=== PATIENT | male | born 1955 | race African-American/Black ===

== ENCOUNTER 2016-08-12 14:24 | Emergency (ER) | payer OTHER ==
[2016-08-12 14:37] VITALS: TEMP 97.9; BMI 22.8
--- NOTE | 2016-08-12 15:08 | EDPRACDOC ---
- General Information Chief Complaint: Wound Stated Complaint: LEFT ARM ABSCESS FROM CHEMO? Time Seen by Provider: 08/12/16 14:58 Information Source: Patient Mode of Arrival:: Car Home Medications: Home Medications Acetaminophen [Acetaminophen ER] 650 mg PO QID PRN 08/12/16 Aspirin (Enteric Coated) [Ecotrin] 81 mg PO DAILY 08/12/16 Azithromycin 250 mg PO .SEE COMMENTS 08/12/16 Dexamethasone 8 mg PO . DIR FOR CHEMO 08/12/16 Famotidine [Pepcid] 40 mg PO DAILY 08/12/16 Hydrochlorothiazide [Hydrodiuril] 12.5 mg PO DAILY 08/12/16 Ibuprofen 800 mg PO TID PRN #30 tablet 08/12/16 Lisinopril [Zestril] 2.5 mg PO DAILY 08/12/16 Mineral Oil/Petrolatum,White [Hydrocerin Cream] 1 applic TOP DIR 08/12/16 Prednisone [Deltasone, Orasone] 5 mg PO BID 08/12/16 Tamsulosin HCl [Flomax] 0.4 mg PO DAILY 08/12/16 Allergies/Adverse Reactions: Allergies Allergy/AdvReac Type Severity Reaction Status Date / Time Penicillins Allergy Hives* Verified 08/12/16 14:32 - History of Present Illness Onset: last night HPI: Pt states had chemo for prostate cancer in L arm on 07/31/16. Pt noticed L arm redness, swelling and pain to veins in L arm and forearm x 2 days. Denies fever , red streaking, numbness, cp, sob. Location: Reports: Extremity (L arm) Last Tetanus: Yes Relevent History Of: Reports: None Prior Abscess: Reports: None Pain: Reports: Mild Quality: Reports: Painful, Red Associated Signs & Symptoms: Reports: None ED Past Medical History - History Reviewed Yes Nurses notes reviewed and agree except as marked - Patient Medical History Psychological History: Denies: Depression Systemic History: Reports: Cancer (prostate) - Social Medical History Smoking Status: Former smoker ETOH: None Substance Abuse: None EDM Review of Systems - Review of Systems Constitutional: No Symptoms Reported. negative: Fever, Chills, Weakness, Fatigue, Loss of Appetite Respiratory: No Symptoms Reported. negative: Cough, Brassy Cough, Barky Cough, Shortness of Breath, Wheezing, Hemoptysis Cardiovascular: No Symptoms Reported. negative: Chest Pain, Palpitations, Syncope, Edema, Orthopnea, PND, Skin Mottling, Cyanosis Neurological: No Symptoms Reported. negative: Headache, Dizziness, Seizure, Numbness, Weakness, Speech Difficulty, Gait Difficulty Musculoskeletal: Arm, Forearm Integumentary: Wound Allergic/Immunologic: No Symptoms Reported. negative: Hives, Itching Hematologic: No Symptoms Reported. negative: Lymphadenopathy, Easy Bruising, Easy Bleeding Psychiatric: No Symptoms Reported. negative: Anxiety, Depression, Hallucinations, Insomnia, Suicidal - Physical Exam Constitutional: Alert Oriented to: Time, Person, Place Last recorded Vital Signs: Last Vital Signs Temp 97.9 F 08/12/16 14:33 Pulse 69 08/12/16 14:33 Resp 18 08/12/16 14:33 BP 149/85 08/12/16 14:33 Pulse Ox 99 08/12/16 14:33 Oxygen Pulse Oxygen Saturation 99 O2 Device Room Air Oxygen Flow Rate Fraction of Inspired Oxygen ( FIO2) - HEENT Head: Normal ( normocephalic) Eye Exam: Normal (PERRL, EOMI, Sclera white) Neck: Normal (FROM, trachea at midline) - Respiratory/Cardiovascular Respiratory: Normal - CTA (BBS clear to auscultation without adventitious sounds ) Cardiovascular: Normal (RRR without murmur, gallop or rub) - Musculoskeletal Extremities: Other (L upper arm medial with erythema, swelling and tenderness to veins, L forearm swelling of veins without erythema.) - Integumentary Skin: Normal, Warm, Dry Lymphatics: Normal (no adenopathy) - Neurologic Memory Impaired: Normal Motor Function: Normal (Normal tone, Pulses 2+ No cyanosis or edema, FROM) Mood Description: Normal Perception: Normal ED Abscess/Mass Exam - Integumentary Skin: Normal, Warm, Dry Mass: Red, Tender, Warm Lymphatics: Normal - Differential Diagnosis Cellulitis, Other (superficial thrombophelibitis, DVT) - Results 08/12/16 15:21 08/12/16 15:21 Lab Results: 08/12/16 18:16 Laboratory Results - last 24 hr 08/12/16 08/12/16 08/12/16 15:21 15:21 15:21 WBC 3.5 L RBC 3.71 L Hgb 10.5 L Hct 32.5 L MCV 88 MCH 28.4 MCHC 32.4 L RDW 14.9 H Plt Count 184 MPV 8.3 Neut % (Auto) Cancelled Lymph % (Auto) Cancelled [place] % (Auto) Cancelled Eos % (Auto) Cancelled Baso % (Auto) Cancelled Absolute Neuts (auto) Cancelled Absolute Lymphs (auto) Cancelled Seg Neuts % (Manual) 7 L Band Neutrophils % 3 Lymphocytes % (Manual) 69 H Monocytes % (Manual) 20 H Eosinophils % (Manual) 1 Absolute Neutrophils 0.35 L Absolute Lymphocytes 2.42 Atypical Lymphocytes Mod amt Platelet Estimate Norm RBC Morphology 1+ polychrom PT 10.0 INR 1.0 APTT 21.1 L Sodium 139 Potassium 4.3 Chloride 102 Carbon Dioxide 25 Anion Gap 16 BUN 13 Creatinine 1.00 Estimated GFR (MDRD) > 60 Glucose 90 Calculated Osmolality 268 L Calcium 10.0 Total Bilirubin 0.6 AST 43 ALT 49 Alkaline Phosphatase 53 Total Protein 8.2 Albumin 4.2 - Diagnostic Imaging Other Image interpreted by: Radiologist Arm: IMPRESSION: Negative for deep venous thrombosis in the left upper extremity. Decision Time to Discharge: 18:16 - Departure Disposition: Home Condition: Good Final Diagnosis: Superficial thrombophlebitis of upper extremity Qualifiers: Laterality: left Qualified Code(s): I80.8 - Phlebitis and thrombophlebitis of other sites Instructions: Superficial Thrombophlebitis (ED) Education/Counseling Given To: Patient Education/Counseling Given Regarding: Diagnosis, Treatment, Follow Up Referrals: None,No Provider [Primary Care Provider] - One Week Eduin Short II, MD [Staff Physician] - One Week Prescriptions: Ibuprofen 800 mg PO TID PRN #30 tablet PRN Reason: Pain Additional Instructions: Apply warm compresses to area 4-5 times daily. Follow up with Oncologist prior to next round of chemo. Return for worse or different symptoms.
[2016-08-12 15:32] LABS: MPV 8.3 fL (7.4-10.4)
[2016-08-12 15:39] LABS: BLOOD UREA NITROGEN 13 MG/DL (9-20); CALCULATED OSMOLALITY 268 MOs/Kg (270-290); CHLORIDE 102 mEq/L (98-107); GLUCOSE 90 MG/DL (70-99); SODIUM LEVEL 139 mEq/L (137-146); TOTAL PROTEIN 8.2 G/DL (6.3-8.2)
[2016-08-12 15:45] LABS: PARTIAL THROMB. TIME 21.1 SEC (22-35)
[2016-08-12 15:54] LABS: SEG NEUTROPHIL 7 % (45-76)
--- NOTE | 2016-08-12 17:33 | DIRPT ---
CLINICAL DATA: Pain and swelling in the left upper extremity for 3 days. EXAM: LEFT UPPER EXTREMITY VENOUS DOPPLER ULTRASOUND TECHNIQUE: Bui-scale sonography with graded compression, as well as color Doppler and duplex ultrasound were performed to evaluate the upper extremity deep venous system from the level of the subclavian vein and including the jugular, axillary, basilic and upper cephalic vein. Spectral Doppler was utilized to evaluate flow at rest and with distal augmentation maneuvers. COMPARISON: None. FINDINGS: Thrombus within deep veins: None visualized. Left internal jugular vein is compressible with color Doppler flow and normal phasicity. Left subclavian vein is patent with color Doppler flow and normal phasicity. Normal compressibility and color Doppler flow in the left axillary vein. Left brachial veins are compressible without thrombus. Left basilic vein is compressible with color Doppler flow and augmentation. The left radial and ulnar veins are compressible without thrombus. Left cephalic vein not visualized. Other findings: Right subclavian vein is patent without thrombus. IMPRESSION: Negative for deep venous thrombosis in the left upper extremity. Electronically Signed By: Malcolm Kaur M.D. On: 08/12/2016 17:30
[2016-08-12 19:04] VITALS: BP 132/95; PULSE 68
== END 2016-08-12 19:02 | disposition home or self-care (01) ==
LOC: EEVIPCON 14:24 → EDMC 14:24
DX: I80.8 Phlebitis and thrombophlebitis of other sites (principal); C61 Malignant neoplasm of prostate; Z79.899 Other long term (current) drug therapy
CPT/HCPCS: 36415; 80053; 85007; 85027; 85610; 85730; 99283

== ENCOUNTER 2016-09-06 09:57 | Emergency (ER) | payer OTHER ==
[2016-09-06 10:24] VITALS: TEMP 98.4; BMI 20.3
[2016-09-06] MEDS ORDERED: NS 1,000 ML IV ONE (10:27)
[2016-09-06] MEDS ORDERED: DIPHENHYDRAMINE 50 MG/ML VIAL IV ONE (10:32)
--- NOTE | 2016-09-06 10:32 | EDPRACDOC ---
- General Information Chief Complaint: Wound Stated Complaint: ARM PAIN/ITCHING Time Seen by Provider: 09/06/16 10:27 Information Source: Patient Mode of Arrival: Car Home Medications: Home Medications Acetaminophen [Acetaminophen ER] 650 mg PO QID PRN 08/12/16 Aspirin (Enteric Coated) [Ecotrin] 81 mg PO DAILY 08/12/16 Dexamethasone 8 mg PO . DIR FOR CHEMO 08/12/16 Famotidine [Pepcid] 40 mg PO DAILY 08/12/16 Hydrochlorothiazide [Hydrodiuril] 12.5 mg PO DAILY 08/12/16 Lisinopril [Zestril] 2.5 mg PO DAILY 08/12/16 Mineral Oil/Petrolatum,White [Hydrocerin Cream] 1 gm TOP DIR 08/12/16 Prednisone [Deltasone, Orasone] 5 mg PO BID 08/12/16 Tamsulosin HCl [Flomax] 0.4 mg PO DAILY 08/12/16 Oxycodone HCl [Oxycodone Immediate Release] 10 mg PO QID PRN 09/06/16 Promethazine [Phenergan] 25 mg PO Q6H PRN 09/06/16 Allergies/Adverse Reactions: Allergies Allergy/AdvReac Type Severity Reaction Status Date / Time Penicillins Allergy Hives* Verified 08/12/16 14:32 - History of Present Illness Onset: 11 days HPI: ITCHING AND RASH IN ARM AFTER CHEMO FOR PROSTATE A FEW DAYS AGO. SAME THING HAPPENED ON CONTRALATERAL EXTREMITY. MILD SWELLING. NO PAIN Location: RUE Worsens: NOTHING Improves: NOTHING ED Past Medical History - History Reviewed Yes Nurses notes reviewed and agree except as marked - Patient Medical History Cardiac History: Reports: Pacemaker Psychological History: Denies: Depression Systemic History: Reports: Cancer (prostate) - Social Medical History Smoking Status: Former smoker EDM Review of Systems - Review of Systems ROS Negative Except as Marked: Yes All systems reviewed and were negative except as marked - Physical Exam Constitutional: Alert (Awake), No apparent distress Oriented to: Time, Person, Place Last recorded Vital Signs: Last Vital Signs Temp 98.4 F 09/06/16 10:18 Pulse 75 09/06/16 10:24 Resp 16 09/06/16 10:24 BP 131/86 09/06/16 10:24 Pulse Ox 98 09/06/16 10:24 Oxygen Pulse Oxygen Saturation 98 O2 Device Oxygen Flow Rate Fraction of Inspired Oxygen ( FIO2) - HEENT Head: Normal ( normocephalic) Eye Exam: Normal (PERRL, EOMI, Sclera white) Oropharynx: Normal (Pharynx:Moist without exudate,Gums-no swelling) Tympanic Membrane: Normal ENT EAC: Normal TMJ: Normal Nose: No Symptoms Reported (septum midline) Neck: Normal (FROM, trachea at midline) - Respiratory/Cardiovascular Respiratory: Normal - CTA (BBS clear to auscultation without adventitious sounds ) Cardiovascular: Normal (RRR without murmur, gallop or rub) - GI Auscultation: Normal (NABS) Palpation: Normal (Soft,No rebound or guarding, non distended) Tenderness: Non tender Soriano's Sign: Negative - Musculoskeletal Back: Normal (Non-Tender) Extremities: Normal (Normal tone, Pulses 2+ No cyanosis or edema, FROM) - Integumentary Skin: Normal, Warm, Dry Lymphatics: Normal (no adenopathy) - Neurologic Memory Impaired: Normal Motor Function: Normal (Normal tone, Pulses 2+ No cyanosis or edema, FROM) Cranial Nerve: Normal (CN II-X11 intact sensation, strength 5/5) Cerebellar: Normal Mood Description: Normal Perception: Normal Decision Time to Discharge: 12:52 - Departure Yes I personally saw and evaluated the patient. Disposition: Home Condition: Good Final Diagnosis: RUE RASH, MEDICATION REACTION Instructions: Urticaria (ED) Education/Counseling Given To: Patient Education/Counseling Given Regarding: Diagnosis, Treatment, Prognosis Referrals: Hang Hernandez MD [Primary Care Provider] - One Week Prescriptions: No Action Tamsulosin HCl [Flomax] 0.4 mg PO DAILY Prednisone [Deltasone, Orasone] 5 mg PO BID Lisinopril [Zestril] 2.5 mg PO DAILY Mineral Oil/Petrolatum,White [Hydrocerin Cream] 1 gm TOP DIR Hydrochlorothiazide [Hydrodiuril] 12.5 mg PO DAILY Famotidine [Pepcid] 40 mg PO DAILY Dexamethasone 8 mg PO . DIR FOR CHEMO Aspirin (Enteric Coated) [Ecotrin] 81 mg PO DAILY Acetaminophen [Acetaminophen ER] 650 mg PO QID PRN PRN Reason: Pain Promethazine [Phenergan] 25 mg PO Q6H PRN PRN Reason: Nausea/Vomiting Oxycodone HCl [Oxycodone Immediate Release] 10 mg PO QID PRN PRN Reason: Pain Additional Instructions: BENADRYL NEEDED FOR ITCHING
[2016-09-06] MEDS ORDERED: IBUPROFEN 800 MG TAB PO ONE (10:37)
[2016-09-06 12:46] VITALS: BP 119/82; PULSE 70
--- NOTE | 2016-09-06 12:47 | DIRPT ---
CLINICAL DATA: Itching and rash on home arm after chemotherapy for 4 days. EXAM: RIGHT UPPER EXTREMITY VENOUS DOPPLER ULTRASOUND TECHNIQUE: Bui-scale sonography with graded compression, as well as color Doppler and duplex ultrasound were performed to evaluate the upper extremity deep venous system from the level of the subclavian vein and including the jugular, axillary, basilic, radial, ulnar and upper cephalic vein. Spectral Doppler was utilized to evaluate flow at rest and with distal augmentation maneuvers. COMPARISON: None. FINDINGS: Contralateral Subclavian Vein: Respiratory phasicity is normal and symmetric with the symptomatic side. No evidence of thrombus. Normal compressibility. Internal Jugular Vein: No evidence of thrombus. Normal compressibility, respiratory phasicity and response to augmentation. Subclavian Vein: No evidence of thrombus. Normal compressibility, respiratory phasicity and response to augmentation. Axillary Vein: No evidence of thrombus. Normal compressibility, respiratory phasicity and response to augmentation. Cephalic Vein: No evidence of thrombus. Normal compressibility, respiratory phasicity and response to augmentation. Basilic Vein: Not visualized. Brachial Veins: No evidence of thrombus. Normal compressibility, respiratory phasicity and response to augmentation. Radial Veins: No evidence of thrombus. Normal compressibility, respiratory phasicity and response to augmentation. Ulnar Veins: No evidence of thrombus. Normal compressibility, respiratory phasicity and response to augmentation. Venous Reflux: None visualized. Other Findings: None visualized. IMPRESSION: No evidence of deep venous thrombosis. Electronically Signed By: Donte Arriaza M.D. On: 09/06/2016 12:44
== END 2016-09-06 13:55 | disposition home or self-care (01) ==
LOC: ED 09:57 → EEVIPCON 09:57 → ED 13:55
DX: L50.9 Urticaria, unspecified (principal); T50.905A Adverse effect of unspecified drugs, medicaments and biological substances, initial encounter
CPT/HCPCS: 93971; 99283; J1200; J3490